=== PATIENT | male | born 1960 | race Asian ===

== ENCOUNTER → 2018-11-17 | Outpatient (CLI) | payer BC ==
--- NOTE | 2018-11-17 22:00 | Electroencephalogram ---
DATE OF STUDY: 11/17/2018 REQUESTING PHYSICIAN: REQUESTING PHYSICIAN: Dr. Dagmar Bull. HISTORY: This 58-year-old man with a history of memory loss and other cognitive deficits is having an EEG for evaluation of epileptiform activity. The patient is not taking any medications which might affect the EEG. TECHNIQUE: This is a routine, portable EEG, recorded digitally, using the International 10/20 electrode placement system, and done in the laboratory setting with the patient awake and asleep. The EEG is adequate for interpretation. DESCRIPTION: Well-organized, well-sustained, 8-9 hertz activity is best seen symmetrically over the posterior head regions. No focal or epileptiform activity is recorded. Sleep is recorded with well-organized spindles and vertex waves. Photic stimulation does produce a driving response. Hyperventilation is not performed. INTERPRETATION: This EEG is normal with the patient awake and asleep. No epileptiform discharges are seen. Clinical correlation is recommended. Dagmar Bull MD CP/KEITH /[id number]
== END ==
LOC: SLEEP 10:52
PROVIDERS: ATTEND Psychiatry & Neurology Clinical Neurophysiology
DX: G30.0 Alzheimer's disease with early onset (principal)
CPT/HCPCS: 95812